=== PATIENT | female | born 2005 | race African-American/Black ===

== ENCOUNTER 2023-05-22 12:24 | Emergency (ER) | payer OTHER ==
[~2023-05-22] VITALS: Ht 162.6 cm; Wt 68.7 kg
[2023-05-22] MEDS ORDERED: KETOROLAC 30 MG/ML 1ML VIAL IV ONE (16:25)
[2023-05-22 17:08] LABS: BASO # 0.1 10^3/uL (0.0-0.2); BASO % 0.7 % (0.0-1.0); EOS # 0.2 10^3/uL (0.0-0.5); EOS % 2.2 % (0.0-3.0); HEMATOCRIT 38.4 % (36.0-47.0); LYMPH % 32.9 % (24.0-44.0); MEAN CORPUSCULAR HEMOGLOBIN 26.7 pg (27.0-33.0); MEAN CORPUSCULAR HGB CONC 31.3 g/dl (32.0-36.5); MEAN CORPUSCULAR VOLUME 85.3 fl (80.0-96.0); MONO # 0.4 10^3/uL (0.0-0.8); MONO % 4.8 % (2.0-8.0); NEUTROPHILS # 5.3 10^3/uL (1.5-8.5); NEUTROPHILS % 59.2 % (36.0-66.0); PLATELET COUNT, AUTOMATED 275 10^3/uL (150-450)
[2023-05-22 17:30] LABS: BLOOD UREA NITROGEN 7 MG/DL (9-23); CALCIUM LEVEL 8.5 MG/DL (8.5-10.1); CARBON DIOXIDE LEVEL 26 MMOL/L (20-31); CHLORIDE LEVEL 106 MMOL/L (98-107); CREATININE FOR GFR 0.65 MG/DL (0.55-1.30); GLUCOSE, FASTING 78 MG/DL (60-100); POTASSIUM SERUM 3.8 MMOL/L (3.5-5.1); SODIUM LEVEL 139 MMOL/L (136-145)
[2023-05-22 17:33] LABS: FREE T4 1.19 NG/DL (0.83-1.43); THYROID STIMULATING HORMONE 1.818 uIU/ML (0.48-4.17)
[2023-05-22 18:35] LABS: RSV AMPLIFICATION NEGATIVE (NEGATIVE)
[2023-05-22 18:47] VITALS: BP 121/63; TEMP 98.2; O2SAT 100
== END 2023-05-22 18:55 | disposition home or self-care (01) ==
LOC: M ED 12:24
DX: M79.10 Myalgia, unspecified site (principal); F12.10 Cannabis abuse, uncomplicated
CPT/HCPCS: 71045; 80048; 81001; 84439; 84443; 84702; 85025; 87631; 96374; 99284; J1885